=== PATIENT | male | born 1955 | race Caucasian/White ===

== ENCOUNTER 2017-06-07 14:38 | Inpatient (IN) ==
[2017-06-07] MEDS ORDERED: DILAUDID IV ONE (15:00)
[2017-06-07] MEDS ORDERED: ZOFRAN IV ONE ×2 (15:01→15:08)
[2017-06-07] MEDS ORDERED: NS IV ONE (15:01)
[2017-06-07 15:27] LABS: MANUAL DIFF NEEDED? NO
[2017-06-07] MEDS ORDERED: DILAUDID ONE (15:30)
[2017-06-07 15:32] LABS: BASO% 0.4 % (0.0-0.8); EOS# 0.14 X1000 (0.0-0.7); EOS% 1.6 % (0.0-10.0); HEMATOCRIT 38.6 % (42.0-52.0); HEMOGLOBIN 13.4 g/dL (14.0-18.0); IMM GRAN# 0.03 X1000 (0.0-0.04); IMM GRAN% 0.3 % (0.0-0.5); LYMPH% 10.1 % (20.5-51.1); MCH 32.9 PG (27-31); MCHC 34.7 g/dL (33-37); MCV 94.8 FL (81-99); MONO# 0.63 X1000 (0.11-0.59); MONO% 7.1 % (1.7-9.3); MPV 9.7 FL (7.4-10.4); NEUT% 80.5 % (42.2-75.2); PLT 280 X1000 (130-400); RBC 4.07 XMIL (4.7-6.1)
[2017-06-07 15:39] LABS: URINE CULTURE NEEDED? NO; URINE MICRO REVIEW NEEDED? NO; URINE SOURCE CLEAN CATCH
[2017-06-07 15:48] LABS: BILIRUBIN URINE NEGATIVE (NEGATIVE); BLOOD URINE NEGATIVE (NEGATIVE); COLOR YELLOW; GLUCOSE URINE NEGATIVE (NEGATIVE); LEUKOCYTES URINE NEGATIVE (NEGATIVE); NITRITE URINE NEGATIVE (NEGATIVE); PROTEIN URINE NEGATIVE (NEGATIVE); SP GRAVITY URINE 1.009; TURBIDITY URINE CLEAR (CLEAR); UROBILINOGEN URINE 4 mg/dL (NORMAL)
[2017-06-07 15:49] LABS: UR EPITHELIAL CELLS <10 /HPF (<10); URINE BACTERIA NEGATIVE /HPF; URINE RBC <10 /HPF (<10); URINE WBC <10 /HPF (<10)
[2017-06-07 16:04] LABS: AGAP 14; ALBUMIN 4.8 g/dL (3.5-5.0); ALKALINE PHOSPHATASE 136 U/L (32-122); BUN 7 mg/dL (8-22); CHLORIDE 94 mmol/L (98-107); COSMO 266; GOT 80 U/L (10-34); GPT 183 U/L (10-44); LIPASE 57 U/L (13-60); POTASSIUM 4.2 mmol/L (3.5-5.1); SODIUM 134 mmol/L (136-145); TCO2 26 mmol/L (25-35); TOTAL BILIRUBIN 2.56 mg/dL (0.20-1.00); TOTAL PROTEIN 8.1 g/dL (6.3-8.3)
[2017-06-07] MEDS ORDERED: NS 1,000 ML IV ONE (17:10)
--- NOTE | 2017-06-07 17:27 | HISTORY AND PHYSICAL ---
CHIEF COMPLAINT: Right upper quadrant pain and tenderness. HISTORY: A 61-year-old white male who has had a multiple week history of intermittent episodes of right upper quadrant pain, certainly stimulated by certain foods. Today he saw Dr. Villafuerte, who referred him to the ED because of his most recent attack which was today. He came to the ED having a shaking chill. He does report that his urine has been darker than his urine episodes in the past. Ultrasound showed cholelithiasis, no gallbladder wall thickening and the common duct was 6 mm. He is ready to have his gallbladder removed. PAST MEDICAL HISTORY: He really has no significant past medical history. He has had cervical disk surgery. He had an appendectomy for ruptured appendix at age 21. MEDICATIONS: He takes no scheduled medications. ALLERGIES: He has no known drug allergies. FAMILY HISTORY: Noncontributory. SOCIAL HISTORY: He denies smoking. He is , has an attentive . REVIEW OF SYSTEMS: Pertinent for the nausea, vomiting, pain, chills and otherwise negative at every other subsystem. PHYSICAL EXAMINATION: VITAL SIGNS: He is afebrile. Heart rate 87, respiratory rate 18, blood pressure 143/83. NECK: No cervical adenopathy. LUNGS: Bilateral breath sounds. HEART: Regular rhythm. ABDOMEN: Soft. He is mildly tender in the epigastrium. EXTREMITIES: No peripheral edema. NEUROLOGIC: He is awake and alert. DIAGNOSTICS/LABORATORIES: White count is 8900, hemoglobin 13.4. BUN 7, creatinine 0.8. Total bilirubin 2.56. AST 80, ALT 183. Alkaline phosphatase 136. There is urobilinogen in the urine. ASSESSMENT: Chronic calculous cholecystitis. Possible choledocholithiasis. PLANS: Admission. We will start him on Zosyn. We will plan to proceed with a laparoscopic cholecystectomy on 06/08. We discussed the procedure, benefits and risks. He understands and wants to proceed. Questions were answered. cc: Demario Amaya MD
--- NOTE | 2017-06-07 17:54 | PROVIDER DOCUMENTATION ---
This chart was entered by José Martinez Scribe, acting as scribe for Joel Herring MD. HPI-Abdominal Pain/GI Problem - General Chief Complaint: Abdominal Pain Stated Complaint: BACK PAIN, VOMITING Time Seen by Provider: 06/07/17 14:57 Source: patient Allergies/Adverse Reactions: Patient Allergies Allergy/AdvReac Type Severity Reaction Status Date / Time No Known Allergies Allergy Verified 06/07/17 15:25 Home Medications: Home Medication List Medication Instructions Recorded Confirmed Last Taken Type Sertraline HCl [Zoloft] 100 mg PO DAILY 06/07/17 06/07/17 06/06/17 08:00 History - History of Present Illness-ABD Nature of Presenting Problems: Patient is a 61 y/o M that presents to the ER with one month if RUQ/back pain. patient reports having multiple tests with visits to PCP and ER. He's had evaluation on his heart, back, and kidneys. Patient reports symptoms began to get worse x 4 days ago after eating fried chicken. patient has outpatient labs ( elevated liver Enzymes), had outpatient u/s showed gallstones and sluge with 6mm CBD. He has had N/V and chills. Abdominal Pain Onset Location: reports: RUQ Pain Radiation: reports: back Quality of Pain: reports: cramping, sharp Severity in ED: reports: moderate, severe Onset/Duration: reports: abrupt, other (one month) Timing: reports: still present, constant, getting worse (x 4 days) Activities at Onset: reports: none Modifying Factors: worse with: eating Associated Symptoms: reports: back/neck pain, fever/chills (chills), nausea, vomiting. denies: chest pain, diarrhea, shortness of breath Similar Symptoms Previously?: Yes Recently seen or treated by another doctor?: Yes Review of Systems - Adult - REVIEW OF SYSTEMS - ADULT Constitutional: reports: chills. denies: fever Eyes: reports: no symptoms reported Ears, Nose, Mouth & Throat: reports: no symptoms reported Cardiovascular: denies: chest pain, orthopnea, palpitations Respiratory: denies: cough, shortness of breath, wheezing Gastrointestinal: reports: abdominal pain, nausea, vomiting. denies: constipation, diarrhea Genitourinary: denies: dysuria, hematuria, urgency Musculoskeletal: reports: back pain. denies: joint pain, neck pain Integumentary: reports: no symptoms reported Neurological: reports: no symptoms reported Psychiatric: reports: no symptoms reported Endocrine: reports: no symptoms reported Hematologic/Lymphatic: reports: no symptoms reported Allergic/Immunologic: reports: no symptoms reported All Other Systems: Reviewed and Negative Past History - Adult - PAST MEDICAL HISTORY-ADULT Review of Records: reports: Old Records Reviewed, Nursing Assessment Review, Medications Reviewed Musculoskeletal: reports: chronic pain (back) - PRIOR SURGERIES/PROCEDURES Surgical/Procedure History: reports: appendectomy, back/neck - IMMUNIZATION STATUS Childhood Immunizations: See Nurse Assessment Flu Vaccine: See Nurse Assessment - FAMILY HISTORY Family History: reviewed, not pertinent - SOCIAL HISTORY Smoking: non-smoker Living Situation: family Physical Exam-General - PHYSICAL EXAM-ADULT Initial Vital Signs Reviewed: Yes - CONSTITUTIONAL General Appearance: alert, moderate distress - EYES Eyes: PERRL/EOMI, pink conjunctivae - HEAD, EARS, NOSE, MOUTH & THROAT HENMT: normocephalic/atraumatic, moist mucous membranes, normal ENT inspection - NECK Neck: non-tender, full range of motion, normal inspection - RESPIRATORY Respiratory: lungs clear, normal breath sounds, no respiratory distress, no accessory muscle use - CARDIOVASCULAR Cardiovascular: regular rate, rhythm, no edema, no murmur - GASTROINTESTINAL (ABDOMEN) Abdominal Exam: normal bowel sounds, soft, no organomegaly, no pulsatile mass, tenderness (RUQ), Desai's sign - MUSCULOSKELETAL Back Exam: no CVA tenderness, no vertebral tenderness Extremity: normal range of motion, normal inspection, no pedal edema, normal capillary refill - SKIN Integumentary: normal color, warm/dry - NEUROLOGIC Neurologic: agricultural education instructor II-XII nml as tested, no motor/sensory deficits - PSYCHIATRIC Psych/Mental Status: normal mood/affect, normal thought content, normal thought process, oriented x 3 Progress - PLAN OF CARE/RESULTS Progress/Plan/Lab Results: Vital Signs - 8 hr 06/07/17 14:44 Temperature 98.1 F Pulse Rate 87 Respiratory Rate 18 Blood Pressure 143/83 O2 Sat by Pulse Oximetry 100 Vital Signs Temp Pulse Resp BP Pulse Ox 06/07/17 14:44 98.1 F 87 18 143/83 100 No Known Allergies Allergy (Verified 06/07/17 15:25) Sertraline HCl [Zoloft] 100 mg PO DAILY 06/07/17 I&O 06/06/17 06/07/17 06/08/17 06:59 06:59 06:59 Output Total 50 / 50 Balance -50 / -50 Laboratory 06/07/17 06/07/17 06/07/17 15:29 15:17 15:17 WBC 8.89 RBC 4.07 L Hgb 13.4 L Hct 38.6 L MCV 94.8 MCH 32.9 H MCHC 34.7 RDW Std Deviation 11.5 Plt Count 280 MPV 9.7 Immature Gran % (Auto) 0.3 Neut % (Auto) 80.5 H Lymph % (Auto) 10.1 L [place] % (Auto) 7.1 Eos % (Auto) 1.6 Baso % (Auto) 0.4 Immature Gran # (Auto) 0.03 Neut # (Auto) 7.15 H Lymph # (Auto) 0.90 L [place] # (Auto) 0.63 H Eos # (Auto) 0.14 Baso # (Auto) 0.04 Sodium 134 L Potassium 4.2 Chloride 94 L Carbon Dioxide 26 Anion Gap 14 BUN 7 L Creatinine 0.8 Estimated GFR/1.73 m2 > 60 BUN/Creatinine Ratio 9 Glucose 89 Calculated Osmolality 266 Calcium 10.0 Total Bilirubin 2.56 H AST 80 H ALT 183 H Alkaline Phosphatase 136 H Total Protein 8.1 Albumin 4.8 Globulin 3.3 Albumin/Globulin Ratio 1.5 Lipase 57 Urine Source CLEAN CATCH Urine Color YELLOW Urine Turbidity CLEAR Urine pH 7.0 Ur Specific [place] 1.009 Urine Protein NEGATIVE Ur Glucose (Stick) NEGATIVE Ur Ketones (Stick) NEGATIVE Urine Blood NEGATIVE Urine Nitrite NEGATIVE Urine Bilirubin NEGATIVE Urobilinogen Dipstick 4 A Urine Leukocytes NEGATIVE Urine WBC (Auto) <10 Urine RBC (Auto) <10 U Epithel Cells (Auto) <10 Urine Bacteria (Auto) NEGATIVE Orders Category Date Time Status CBC WITH ELECTRONIC DIFF [HEME] Stat Lab 06/07/17 15:17 Completed CMP [COMPREHENSIVE METABOLIC PANEL] [CHEM] Stat Lab 06/07/17 15:17 Completed LIPASE [CHEM] Stat Lab 06/07/17 15:17 Completed URINALYSIS W/POSS RFLX CULT-1 [URINALYSIS] Stat Lab 06/07/17 15:29 Completed Hydromorphone [Dilaudid] Med 06/07/17 15:00 Discontinued 1 mg IV NOW ONE Hydromorphone [Dilaudid] Med 06/07/17 15:30 Discontinued 2 mg .ROUTE .STK-MED ONE Ondansetron [Zofran] Med 06/07/17 15:08 Discontinued 8 mg IV NOW ONE Ondansetron [Zofran] 0 mg Med 06/07/17 15:01 Discontinued 0.9% Sodium Chloride Inj [Ns] 50 ml IV NOW Result Diagrams: 06/07/17 15:17 06/07/17 15:17 - CONSULTS/PCP/HOSPITALIST Notification #1 *Consult/PCP/Hospitalist*: Time Discussed: 16:36 Reason/Comments: cholecysitis Consult Disposition: Will see in ED, Admit Departure - Departure Date of Disposition Decision: 06/07/17 Time of Disposition Decision: 16:37 DIAGNOSIS: Cholecystitis Disposition: ADMITTED INPATIENT 09 Certified Medical Emergency: Emergent Condition: Stable Referrals and Follow-Ups: Ratna Villafuerte MD [Primary Care Provider] - - Critical Care Note This patient required my direct & personal management of CC.: No Attestation - Physician/ MINDI Attestation The physician spent face to face time with patient:: Yes Advanced Practice Provider documentation review:: Supervising physician onsite and consulted in the evaluation and care of this patient. The physician did have a face to face encounter with the patient. This chart was documented by the indicated scribe, (José Martinez, [email or web address]) and accurately reflects the services I performed and decisions made by me, Joel Herring MD, as attested by the provider's signature.
[2017-06-07] MEDS: ZOSYN 3.375 GM in NS 50 ML IV SCH (19:03)
[2017-06-07] MEDS: DILAUDID IV PRN ×2 (21:06→23:50)
[2017-06-08] MEDS: ZOSYN 3.375 GM in NS 50 ML IV SCH ×4 (01:10→17:20)
[2017-06-08] MEDS: DILAUDID IV PRN ×5 (04:43→22:27)
[2017-06-08] MEDS: ZOFRAN IV PRN (10:00)
[2017-06-08] MEDS: ZOLOFT PO SCH (10:51)
[2017-06-08] MEDS ORDERED: FENTANYL ONE (12:18)
[2017-06-08] MEDS ORDERED: XYLOCAINE-MPF 2% ONE (12:20)
[2017-06-08] MEDS ORDERED: DIPRIVAN 1% ONE (12:20)
[2017-06-08] MEDS ORDERED: QUELICIN (DOSE) ONE (12:20)
[2017-06-08] MEDS ORDERED: STERILE WATER INJ. ONE (12:21)
[2017-06-08] MEDS ORDERED: ROBINUL ONE (12:23)
[2017-06-08] MEDS ORDERED: XYLOCAINE 2% JELLY ONE (12:24)
[2017-06-08] MEDS ORDERED: LR 1,000 ML ONE (12:39)
[2017-06-08] MEDS ORDERED: SODIUM CHLORIDE 0.9% ONE (12:39)
[2017-06-08] MEDS ORDERED: MARCAINE 0.25% PF ONE (12:39)
[2017-06-08] MEDS ORDERED: DECADRON ONE (13:21)
[2017-06-08] MEDS ORDERED: ZOFRAN ONE (13:21)
[2017-06-08] MEDS ORDERED: NEOSTIGMINE ONE (13:37)
--- NOTE | 2017-06-08 13:55 | Diag Imaging Result Doc PS360 ---
OPERATIVE CHOLANGIOGRAM - 06/08/2017 INDICATION: GALLBLADDER DX TECHNIQUE: The exam was performed by the patient's surgeon. Two images were submitted. COMPARISON: Ultrasound from 06/07/2017 FINDINGS: Although the common bile duct is not very dilated, there is an impacted filling defect at the distal most duct compatible with an obstructing stone. There is no significant passage of contrast into the duodenum. Remainder of the cholangiogram appears normal. IMPRESSION: Obstructing stone in the distal common bile duct. Electronically signed by Sabino Ahuja 06/08/2017 1:52 PM
[2017-06-08] MEDS: DILAUDID ONE ×2 (14:05→14:15)
[2017-06-08] MEDS ORDERED: NS 1,000 ML ONE (14:22)
[2017-06-08] MEDS ORDERED: DILAUDID ONE (14:35)
[2017-06-08] MEDS ORDERED: FLUZONE QUAD 2017-2018 SYRINGE IM ONE (15:54)
[2017-06-08] MEDS: NS 1,000 ML IV SCH (15:59)
[2017-06-08] MEDS: SODIUM CHLORIDE 0.9% INJ SCH (17:19)
[2017-06-08] MEDS: PROTONIX IV SCH (17:19)
[2017-06-08] MEDS: PERIDEX MT SCH (22:27)
[2017-06-09] MEDS: ZOSYN 3.375 GM in NS 50 ML IV SCH ×4 (00:30→17:43)
[2017-06-09] MEDS: DILAUDID IV PRN ×6 (01:35→21:26)
[2017-06-09] MEDS ORDERED: TYLENOL PO PRN (02:52)
[2017-06-09] MEDS: ZOFRAN IV PRN (03:00)
[2017-06-09] MEDS: NS 1,000 ML IV SCH ×2 (04:36→22:32)
[2017-06-09] MEDS ORDERED: ZOSYN ONE (05:26)
[2017-06-09 06:14] LABS: MANUAL DIFF NEEDED? NO
[2017-06-09 06:18] LABS: BASO% 0.1 % (0.0-0.8); EOS# 0.02 X1000 (0.0-0.7); EOS% 0.3 % (0.0-10.0); HEMATOCRIT 34.3 % (42.0-52.0); HEMOGLOBIN 11.6 g/dL (14.0-18.0); LYMPH# 1.09 X1000 (1.2-3.4); LYMPH% 13.7 % (20.5-51.1); MCH 32.7 PG (27-31); MCHC 33.8 g/dL (33-37); MCV 96.6 FL (81-99); MONO# 0.91 X1000 (0.11-0.59); MONO% 11.4 % (1.7-9.3); MPV 9.6 FL (7.4-10.4); NEUT% 74.5 % (42.2-75.2); PLT 268 X1000 (130-400); RBC 3.55 XMIL (4.7-6.1)
[2017-06-09 06:59] LABS: AGAP 12; ALBUMIN 4.3 g/dL (3.5-5.0); ALKALINE PHOSPHATASE 113 U/L (32-122); BUN 8 mg/dL (8-22); CALCIUM 9.6 mg/dL (8.8-10.2); CHLORIDE 94 mmol/L (98-107); COSMO 266; GOT 78 U/L (10-34); GPT 171 U/L (10-44); POTASSIUM 4.4 mmol/L (3.5-5.1); SODIUM 134 mmol/L (136-145); TCO2 28 mmol/L (25-35); TOTAL PROTEIN 7.3 g/dL (6.3-8.3)
[2017-06-09] MEDS: PERIDEX MT SCH ×2 (08:00→22:29)
[2017-06-09] MEDS: ZOLOFT PO SCH (09:00)
[2017-06-09] MEDS ORDERED: GLUCAGON ONE (09:17)
[2017-06-09] MEDS ORDERED: DIPRIVAN 1% ONE ×2 (10:30→12:49)
[2017-06-09] MEDS ORDERED: XYLOCAINE-MPF 2% ONE ×2 (10:32→12:26)
[2017-06-09] MEDS ORDERED: FENTANYL ONE (10:32)
--- NOTE | 2017-06-09 13:11 | Diag Imaging Result Doc PS360 ---
EXAM: ERCP-BILIARY AND PANCREATIC HISTORY: s/p lap soto TECHNIQUE: Three views COMPARISON: None. FINDINGS: Contrast was placed into the common bile duct. A stone was removed. The last film shows the placement of a common bile duct stent. IMPRESSION: Stone removed with a common bile duct stent placed Electronically signed by Avtar Tierney 06/09/2017 1:08 PM
[2017-06-09] MEDS: PROTONIX IV SCH (17:42)
[2017-06-09] MEDS: SODIUM CHLORIDE 0.9% INJ SCH (17:42)
--- NOTE | 2017-06-09 19:46 | CONSULTATION ---
DATE OF CONSULTATION: 06/08/2017 ATTENDING PHYSICIAN: Dr. Amaya. PRIMARY CARE DOCTOR: Dr. Villafuerte in [place]. REASON FOR CONSULTATION: Common duct obstruction, choledocholithiasis. HISTORY OF PRESENT ILLNESS: Mr. Katz is a 61-year-old male, who was admitted on 06/07/2017 with symptoms of right upper quadrant pain and tenderness, nausea, vomiting, jaundice and elevated liver enzymes. The ultrasound showed evidence of cholelithiasis. No gallbladder wall thickening and common bile duct measuring 6 mm. He underwent cholecystectomy today by Dr. Amaya. The intraoperative cholangiogram showed evidence of common bile duct stones causing obstruction. Patient has just returned from surgery. He is complaining of abdominal pain. He denies any vomiting blood or passing blood in the stools. As an outpatient he was seen in the clinic and he was scheduled to have EGD and colonoscopy done, but had to cancel it because of ongoing abdominal pain, nausea and vomiting. PAST MEDICAL HISTORY: Abdominal pain, nausea and vomiting. SURGICAL HISTORY: 1. Recent cholecystectomy today by Dr. Amaya. 2. Appendectomy. 3. Cervical disk surgery. 4. Never had EGD or colonoscopy in the past. ALLERGIES: No known drug allergies. SOCIAL HISTORY: He is . His family is very supportive and at bedside. He denies any smoking history, denies history of illicit drugs. FAMILY HISTORY: Noncontributory. MEDICATIONS AT HOME: Include Zoloft 100 mg once daily. MEDICATIONS IN THE HOSPITAL: Include: 1. Dilaudid 1 mg IV q. 3 hours as needed. 2. IV fluids 80 mL/h. 3. Zofran 4 mg IV q. 4-6 hours. 4. Zoloft 1 mg daily. 5. Zosyn 3.375 IV q. 6 hours. 6. Protonix IV once daily. 7. Clear liquid diet. 8. Incentive spirometry. REVIEW OF SYSTEMS: Denies any current fevers, rigors, chills, chest pain, shortness of breath, dyspnea at rest. Denies any genitourinary complaints. Does have soreness of the abdomen from recent surgery. Denies any current nausea or vomiting. PHYSICAL EXAMINATION: Vital signs: Temperature of 97.9, pulse rate of 88, respiratory rate of 18, blood pressure 154/45, saturating 100% on room air. Body weight 185 pounds. BMI 26.5 kg. General Appearance: Moderately well-nourished, lying in bed, in no acute distress. HEENT: Mild pallor. Mild icterus. Pupils equal, react to light. Neck: Supple. Chest: Decreased air entry. CVS: Regular rhythm. Abdomen is discomfort from recent surgery. Surgical dressings noted at laparoscopy. Incision area is no guarding. Appropriately tender abdomen from the surgery. Extremities: No cyanosis, clubbing, edema. Neurologic: Alert, awake , oriented. LABS: Hemoglobin and hematocrit is 13.4 and 38.6, white count of 8.89, platelet count of 280,000. MCV of 94.8, sodium 130, potassium 4.2, chloride 94, bicarb 26, anion gap of 14 , BUN of 7, creatinine 0.8, glucose of 189, calcium 10, total bilirubin was 2.56, AST 80, ALT 183, alkaline phosphatase 136. These were done yesterday. Urinalysis is negative. Operative cholangiogram done today showed obstructing stone in the distal common bile duct. There is no contrast in the duodenum, impacted filling defect at the distal common bile duct compatible with obstructing stone. Ultrasound of the abdomen showing cholelithiasis. IMPRESSION/PLAN: 1. Choledocholithiasis causing common bile duct obstruction. 2. Chronic calculus cholecystitis as well as cystectomy today. 3. Elevated liver enzymes. RECOMMENDATIONS: 1. We will continue patient on IV fluids, IV PPIs, IV pain control, IV antiemetics, and IV antibiotics. 2. We will check labs tomorrow. I will discuss the case with Dr. Holliday and will decide about performing ERCP tomorrow or day after depending on his labs. Risks, benefits discussed with the patient. In the interim, on a clear liquid diet. 3. The patient had an outpatient colonoscopy scheduled in the past. We will reschedule it as an outpatient once he recovers from this current situation. The GI prophylaxis with PPIs to continue. 4. The above plan was discussed with the patient and family. All questions answered. cc: MD Demario Michael MD MTDJhonatan
[2017-06-10] MEDS: DILAUDID IV PRN ×2 (01:03→04:12)
[2017-06-10] MEDS: ZOSYN 3.375 GM in NS 50 ML IV SCH ×2 (01:03→07:01)
--- NOTE | 2017-06-10 03:38 | OPERATIVE NOTE ---
PROCEDURE DATE: 06/08/2017 PROCEDURE PERFORMED: Laparoscopic cholecystectomy with operative cholangiogram; and repair of umbilical hernia. SURGEON: Demario Amaya MD PROCEDURE MANAGER: Dr. Saunders, who assisted in dissection and retraction and wound closure. PREOPERATIVE DIAGNOSIS: Chronic calculous cholecystitis. POSTOPERATIVE DIAGNOSES: 1. Chronic calculous cholecystitis. 2. Choledocholithiasis. 3. Umbilical hernia. DESCRIPTION OF PROCEDURE: Satisfactory general anesthesia was achieved. The abdomen is prepped and draped in a sterile fashion. Inferior curvilinear incision was made at the umbilicus. We dissected and palpated a small hernia defect, so we dissected around the defect and the umbilical hernia from the back of the umbilical skin, and amputated the hernia sac at the fascia level. We then introduced the 11 trocar through this defect. We insufflated through this trocar. Under direct visualization, we introduced a 5 trocar midclavicular line, a 5 trocar near the anterior axillary line, an 11 mm trocar in the midepigastrium. We placed the patient in reverse Trendelenburg, turned him to the left. We actually could not grasp the fundus, so we had to decompress the gallbladder with the aspirating needle. We then grasped the fundus and reflected it cephalad, and began dissection of the triangle of [place]. We identified the critical view, clipped the cystic duct near the junction of the gallbladder. We incised the cystic duct and introduced a Kaylee catheter and shot the cholangiogram. The same with choledocholithiasis and umbilical hernia. Findings of cholangiogram revealed a normal-sized common duct. There was a filling defect in the distal common bile duct and some flow into the duodenum. DESCRIPTION OF PROCEDURE: satisfactory general endotracheal anesthesia was achieved. The abdomen was prepped and draped in a sterile fashion. We anesthetized the skin at each trocar site with 1% lidocaine without epinephrine. We made an inferior curvilinear incision at the base of the umbilicus and dissected down to the fascia. We identified the defect at the umbilicus, so we dissected around and the umbilical hernia from the back of the umbilical skin and amputated the hernia sac at the fascia level. We then introduced the 11 trocar. Through this defect into the abdominal cavity we insufflated through this trocar. Under direct visualization, introduced a 5 trocar in the midclavicular line, 5 trocar near the anterior axillary line, and 11 mm trocar in the midepigastrium. We placed the patient in reverse Trendelenburg and turned him to the left. The gallbladder was somewhat tense, so we had to decompress it with a large aspirating needle. We then were able to grasp the fundus of the gallbladder and reflect it cephalad. We then began dissection of the triangle of [place]. We obtained a critical view. We identified the cystic duct and cystic artery. We clipped the cystic duct near the junction of the gallbladder. We incised the cystic duct,introduced a [place] catheter, shot a cholangiogram. The findings above were noted. We removed the cholangiogram catheter, clipped the cystic duct on the opposite side of cystic ductotomy x2, and transected it. The cystic artery was clipped proximally x2, distally x1, and divided. We then used the cautery spatula to dissect the gallbladder away from the liver. After complete separation of gallbladder from liver, we changed videolaparoscope to the mid-epigastric trocar. We introduced an EndoCatch, placed the gallbladder within the bag and delivered out of the abdominal cavity. We looked back. Hemostasis was satisfactory. We aspirated what fluid had collected. We then decompressed the abdominal cavity and flattened the patient. We then removed the trocars. We closed the fascia in the epigastrium with a 2-0 Polysorb fascial stitch. We closed the defect at the umbilicus with two 2-0 Polysorb fascial stitches. We then closed the skin at each incision with 4-0 Polysorb subcuticular stitches. Sterile OpSite were applied. He tolerated it well. He was sent to the recovery room in satisfactory condition. cc: Dr. Christo Amaya MD
[2017-06-10 08:04] VITALS: BP 160/93
--- NOTE | 2017-06-12 03:18 | OPERATIVE NOTE ---
PROCEDURE DATE: 06/09/2017 PROCEDURE: 1. Endoscopic retrograde cholangiopancreatogram. 2. Endoscopic sphincterotomy. 3. Endoscopic balloon stone extraction. 4. Endoscopic stent placement. PREOPERATIVE DIAGNOSIS: Choledocholithiasis. POSTOPERATIVE DIAGNOSIS: Solitary stone in the common bile duct. DESCRIPTION OF PROCEDURE: After informed consent and adequate intravenous sedation, that scope was introduced into the esophagus, stomach, and duodenum. The cholangiogram was done. The patient has a solitary stone. At this point, a wide sphincterotomy was done and the balloon was introduced. The stone was extracted. At this point, another lavage was done and a 10-Erit[place], 5 cm stent was deployed. The scope was withdrawn. The patient tolerated the procedure well without any immediate complications. The procedure was done entirely by Dr. Anna under my supervision. cc: MD Demario Flores MD
--- NOTE | 2017-06-14 04:16 | DISCHARGE SUMMARY ---
ADMISSION DATE: 06/07/2017 DISCHARGE DATE: 06/10/2017 PRIMARY DISCHARGE DIAGNOSIS: Chronic calculous cholecystitis. PRIMARY PROCEDURE: Laparoscopic cholecystectomy and operative cholangiogram done on 06/08/2017. He then underwent an ERCP with stent placement and stone extraction on 06/09/[address] Anna and Dr[address] Holliday. HISTORY: This is a 61-year-old had presented to the ED after being sent there by his family physician. He had significant right upper quadrant pain. Ultrasound showed cholelithiasis. He was taken to the operating room on 06/08/2017 and underwent the cholecystectomy. He had a small umbilical hernia that we repaired as well. He did have a common duct stone on a cholangiogram and Dr. Holliday and Dr. Anna and then did an ERCP, removed the stone and stented him on 06/09/2017. By 06/10/2017, his temp was 99.3 degrees. It was felt he could be discharged home. He will return to the office in a week for followup. He will follow up with Dr. Holliday as well for stent removal. cc: MD Ratna Huang MD
== END 2017-06-10 09:05 | disposition home or self-care (01) ==
LOC: ED 14:38 → EDIPHOLD 17:32 → 4N 06-08 14:13
PROVIDERS: ADMIT Surgery; ATTEND Surgery